=== PATIENT | female | born 1980 | race Caucasian/White ===

== ENCOUNTER 2019-04-06 05:50 | Day surgery (SDC) | payer OTHER ==
[~2019-04-06] VITALS: Ht 162.6 cm; Wt 59.0 kg
[2019-04-06] MEDS: LACTATED RINGERS 1,000 ML IV SCH ×2 (06:10→06:45)
[2019-04-06 06:47] LABS: UCG SCREEN NEGATIVE
[2019-04-06] MEDS ORDERED: SKIN ADHESIVE 0.7 GM EA TOP ONE (07:18)
[2019-04-06] MEDS ORDERED: BUPIVACAINE HCL 0.5% (5MG/ML) 50ML ONE (07:18)
[2019-04-06] MEDS ORDERED: PROPOFOL 200MG/20ML VIAL IV ONE (07:56)
[2019-04-06] MEDS ORDERED: FENTANYL CITRATE/PF 50MCG/ML 2ML VIAL ONE ×2 (07:56→08:21)
[2019-04-06] MEDS ORDERED: NEOSTIGMINE METHYLSULFATE 1MG/ML 10 ML VIAL ONE (07:56)
[2019-04-06] MEDS ORDERED: MIDAZOLAM HCL 2 MG/2 ML VIAL ONE (07:56)
[2019-04-06] MEDS ORDERED: GLYCOPYRROLATE 0.2 MG/ML 2ML VIAL ONE (07:56)
[2019-04-06] MEDS ORDERED: ROCURONIUM BROMIDE 10MG/ML VIAL 5ML IV ONE (07:56)
[2019-04-06] MEDS ORDERED: SUCCINYLCHOLINE CHLORIDE 200MG/10ML IV ONE (07:57)
[2019-04-06] MEDS ORDERED: SODIUM CHLORIDE 0.9% 10ML VIAL ONE (07:57)
[2019-04-06] MEDS ORDERED: METOCLOPRAMIDE HCL 10MG/2ML VIAL ONE (07:57)
[2019-04-06] MEDS ORDERED: CEFAZOLIN SODIUM 1000MG/VIAL ONE (07:57)
[2019-04-06] MEDS ORDERED: LIDOCAINE HCL/PF 1% 10 MG/ML 5ML VIAL ONE (07:57)
[2019-04-06] MEDS ORDERED: ONDANSETRON HCL 4MG/2ML INJ ONE (07:57)
[2019-04-06] MEDS ORDERED: MORPHINE SULFATE 2 MG/ML CPJ (NOT FOR IM USE) IV PRN (09:00)
[2019-04-06] MEDS ORDERED: BUPIVACAINE HCL 0.5% 125 ML in ON-Q PM012 DRUG DELIV DEVICE 1 EA IR SCH (09:00)
[2019-04-06] MEDS ORDERED: ONDANSETRON HCL 4MG/2ML INJ IV PRN (09:00)
[2019-04-06] MEDS ORDERED: MEPERIDINE HCL/PF 25MG/ML CPJ IV PRN ×2 (09:00)
[2019-04-06] MEDS ORDERED: HYDROMORPHONE HCL/PF 2MG/ML CPJ IV PRN (09:00)
[2019-04-06] MEDS ORDERED: SODIUM CHLORIDE 0.9% 1,000 ML IV ONE (09:08)
[2019-04-06 09:44] VITALS: BP 105/56
== END 2019-04-06 11:30 | disposition home or self-care (01) ==
LOC: OR 05:50
PROVIDERS: ATTEND Surgery
DX: K40.90 Unilateral inguinal hernia, without obstruction or gangrene, not specified as recurrent (principal); Z98.890 Other specified postprocedural states
CPT/HCPCS: 49505; 81025; C1781; J0330; J0690; J2175; J2250; J2405; J2704; J2710; J2765; J3010; J3490